=== PATIENT | male | born 1960 | race Caucasian/White ===

== ENCOUNTER 2018-09-03 06:09 | Inpatient (IN) ==
--- NOTE | 2018-07-27 11:33 | Anesthesiology Consultation ---
Date of Service July 27, 2018 Assessment & Plan (1) Encounter for pre-operative examination: Chart Review Chart Review: Acceptable Risk for Surgery and Patient seen in Pre Admission Testing Teaching & Discussion Instructed NPO after midnight before surgery, except medications with 15 cc of water. Medication instructions provided according to the PAT guidelines. History Surgery Operation Date: 09/03/18 13:00 Proposed Procedures p Right Total Shoulder Arthroplasty versus Reverse Total Shoulder Arthroplasty - Teddy Squires DO Height/Weight Height: 5 ft 8 in Weight: 90 kg Allergies Allergy/AdvReac Type Severity Reaction Status Date / Time No Known Allergies Allergy Verified 07/22/18 12:02 Medications Home Medications Medication Instructions Recorded Confirmed Last Taken diphenhydramine HCl [Benadryl 25 mg PO DAILY PRN 07/22/18 07/22/18 Unknown Allergy] Past Medical History Medical History Cancer SKIN BCC Diverticulitis HX Environmental allergies Osteoarthritis Past Surgical History Surgical History History of appendectomy History of colonoscopy History of tonsillectomy Past Anesthesia History No Hx of Anesthesia Complications and No Family Hx of Anesthesia Complications History of PONV No Motion Sickness Screening History of Motion Sickness: No Social History Smoking Status: Former smoker tobacco type: smokeless tobacco Do You Dip or Chew Tobacco: Yes (3-4 CANS WEEKLY) Smoking End Date: quit 29yrs ago Hx Alcohol Use: No Alcohol Intake Frequency Comment: Recovered alcoholic x 29 years Hx Substance Use: No substance use type: does not use Exercise / Class Metabolic Activity II 4-5 Yardwork/Stairs/Walk up hill (Denies CP or SOB with stairs) Review of Systems Pt denies any recent chest pain, shortness of breath, palpitations, cough, fever or URI. Physical Exam Vital Signs BP: 115/78 P: 74bpm SPO2: 96% RA T: 98.3 F R: 16 ENMT Mouth: + dental bridge; no chipped teeth and no loose teeth Thyromental Distance: < 3.5 Finger Breadths (3) Mallampati Class: II Neck normal visual inspection and + facial hair (full jimenes and mustache, medium length. Pt amenable to shaving prior); neck extension not limited Respiratory normal respiratory effort Auscultation: lungs clear to auscultation bilaterally Cardiovascular Rate/Rhythm: regular rate and regular rhythm Heart Sounds: no murmur Vessels: no carotid bruit Testing Electrocardiogram Date: 07/27/18 Findings: + NSR @ (68) Chest X-Ray Date: 07/27/18 Findings: + NAD Laboratory Results 07/27/18 11:49 07/27/18 11:49 Blood Type B Positive 07/27/18 11:49 Antibody Screen NEGATIVE 07/27/18 11:49 PT 10.6 Seconds (9.0-12.0) 07/27/18 11:49 INR 1.0 (0.9-1.1) 07/27/18 11:49 APTT 24.8 Seconds (21.0-31.0) 07/27/18 11:49
--- NOTE | 2018-07-27 11:41 | PAT Medication Instructions ---
Medication Instructions Date of Service July 27, 2018 Home Medications diphenhydramine HCl [Benadryl Allergy] 25 mg PO DAILY PRN DO NOT take the morning of surgery diphenhydramine HCl [Benadryl Allergy] 25 mg PO DAILY PRN Take evening before surgery diphenhydramine HCl [Benadryl Allergy] 25 mg PO DAILY PRN (if needed) Other Notes If you have any questions please call us at [phone] or [phone] or [phone] or [phone]
--- NOTE | 2018-07-27 12:46 | XRay Report ---
XR chest Pre-admission PA/Lat CLINICAL HISTORY: Preoperative evaluation. COMPARISON STUDY: No previous studies for comparison. FINDINGS: Incidental note is made of severe osteoarthritis of the right shoulder. Lung volumes are no rmal. There is no pneumothorax or pleural effusion. No consolidation or evidence for pulmonary edema. Cardiac size is normal. Mediastinal contours are normal. IMPRESSION: No acute cardiopulmonary findings. Electronically signed by: Mynor Kemp M.D. 07/27/2018 12:44 PM
[2018-07-27 14:31] LABS: Basophils # (auto) 0.03 K/uL (0-0.2); Basophils % (auto) 0.5 %; Eosinophils # (auto) 0.21 K/uL (0-0.5); Eosinophils % (auto) 3.5 %; Hematocrit (blood only) 45.8 % (42-52); Immature Granulocytes # (auto) 0.01 K/uL (0.00-0.02); Immature Granulocytes % (auto) 0.2 %; Lymphocytes # (auto) 2.05 K/uL (1.2-3.4); Lymphocytes % (auto) 34.2 %; Mean Corpuscular Hgb Conc 34.9 g/dL (32-36); Mean Corpuscular Volume 86.6 fL (80-100); Mean Platelet Volume 10.9 fL (7.4-10.4); Monocytes # (auto) 0.46 K/uL (0.11-0.59); Monocytes % (auto) 7.7 %; Neutrophils # (auto) 3.24 K/uL (1.4-6.5); Neutrophils % (auto) 53.9 %; Platelet Count 253 K/uL (130-400); RDW Coefficient of Variation 13.6 % (11.5-14.5); Red Blood Count 5.29 M/uL (4.7-6.1)
[2018-07-27 14:42] LABS: Partial Thromboplastin Ratio 0.9; Partial Thromboplastin Time 24.8 Seconds (21.0-31.0); Prothrombin Time 10.6 Seconds (9.0-12.0)
[2018-07-27 15:01] LABS: BUN Creatinine Ratio 17.7 (10-20); Calcium 9.4 mg/dl (8.5-10.1); Creatinine Clr Calc Pharmacy 89.4 ml/min; Est GFR (African American) 101.1; Est GFR (Non-African American) 87.3; Potassium 4.2 mmol/L (3.5-5.1)
--- NOTE | 2018-09-02 21:18 | History & Physical Report ---
Date of Service September 02, 2018 Assessment & Plan (1) Primary osteoarthritis of right shoulder: We will likely proceed with a right reverse shoulder arthroplasty. He understands that the intraoperative decision whether I decided to do a total shoulder or a reverse shoulder. Postoperatively he will be placed in a sling and kept overnight in the hospital for postop medical management. He plans to use energy physical therapy upon discharge. Present on Admission?: Yes History of Present Illness Chief Complaint: Primary osteoarthritis of the right shoulder Primary Care Provider: Bernard Rojo MD Is a pleasant 57-year-old male who is been dealing with a long history of right shoulder pain. MRI and clinical examination have been diagnostic for advanced osteoarthritis of the right shoulder. There is significant glenoid bone wear. After failing extensive conservative treatment, he is like to proceed with a reverse right shoulder arthroplasty. Allergies Allergy/AdvReac Type Severity Reaction Status Date / Time No Known Allergies Allergy Verified 07/22/18 12:02 Home Medications Home Medications Medication Instructions Recorded Confirmed Type diphenhydramine HCl [Benadryl 25 mg PO DAILY PRN 07/22/18 07/22/18 History Allergy] Past Med/Surg History Medical History Cancer SKIN BCC Diverticulitis HX Environmental allergies Osteoarthritis Surgical History History of appendectomy History of colonoscopy History of tonsillectomy Social History Preferred Language: Mauritian Communication Ability: Effective Beliefs That Will Affect Care: None Current Living Situation: Spouse Feels Safe at Home: Yes Smoking Status: Former smoker Tobacco Type: smokeless tobacco Second Hand Exposure: Yes ("SOMETIMES") Hx Alcohol Use: No Hx Substance Use: No Review of Systems All systems reviewed & are unremarkable except as noted in HPI & below Physical Exam Constitutional: WD/WN, vitals as above Eyes: PERRL, conjunctivae normal, anicteric sclerae ENMT: external ear and nose normal, oropharynx normal Neck: trachea midline, no thyromegaly Respiratory: normal respiratory effort Cardiovascular: RRR, no murmur, no edema Gastrointestinal (Abdomen): normal bowel sounds, soft, nontender, no hepatosplenomegaly Musculoskeletal: Physical examination of the right shoulder reveals decreased range of motion and crepitis throughout. There is good strength with full can testing and external rotation. There is tenderness palpation along the anterior glenohumeral joint line. The right upper extremity is neurovascularly intact. Psychiatric: A+Ox3, euthymic affect Results & Data Diagnostic Findings Radiographs of the right shoulder show osteoarthritis of the glenohumeral joint. There is joint space narrowing, osteophyte formation, and [id number] articulation.
[~2018-09-03 06:09] MED LIST: ACETAMINOPHEN 500 MG TAB PO SCH; CEFAZOLIN 2000MG 2,000 MG/15 ML SYR IV SCH; FAMOTIDINE 20 MG TAB PO SCH; GABAPENTIN 300 MG PO SCH; LR 15ML/HR IV SCH; LR 60ML/HR IV SCH; ROPIVACAINE 0.5% HCL/PF 150 MG, BUPIVACAINE 0.5% MPF 30 ML, EPINEPHrine 30MG/30ML (OR U... INFIL SCH; TRANEXAMIC ACID 1,000 MG **IV Pre-op IV SCH
[2018-09-03] MEDS ORDERED: ROPIVACAINE 0.5% 5 MG/ML 30 ML VIAL ONE (06:28)
[2018-09-03] MEDS ORDERED: BUPIVACAINE 0.5 % 5 MG/1 ML PF 10ML VIAL ONE (06:29)
[2018-09-03] MEDS ORDERED: TRANEXAMIC ACID 1,000 MG **IV Intra-op IV SCH (06:30)
[2018-09-03] MEDS ORDERED: MIDAZOLAM HCL 1 MG/ML 2ML VIAL ONE (06:43)
[2018-09-03] MEDS ORDERED: fentaNYL citrate 100 MCG/2 ML VIAL ONE (06:43)
[2018-09-03] MEDS ORDERED: LIDOCAINE HCL 2% 2 ML VIAL/AMP(20MG/ML) INFIL ONE (06:47)
[2018-09-03] MEDS ORDERED: PROPOFOL IV EMULSION 10 MG/ML 20 ML VIAL IV ONE (06:47)
--- NOTE | 2018-09-03 06:56 | History & Physical Bridge Note ---
Date of Service September 03, 2018 History & Physical Bridge Note I have examined the patient, reviewed the History & Physical and in the interval since the performance of the History & Physical I have noted the following changes of clinical significance: no changes noted
[2018-09-03] MEDS ORDERED: ORTHO JOINT ANESTHETIC ONE (07:35)
[2018-09-03] MEDS ORDERED: POVIDONE-IODINE OP SOLN 30 ML BTL ONE (07:35)
[2018-09-03] MEDS ORDERED: ONDANSETRON INJ 2 MG/ML 2 ML VIAL IV PRN ×2 (08:17→12:39)
[2018-09-03] MEDS ORDERED: ATROPINE SULFATE 0.1 MG/ML 10ML SYR IV PRN (08:17)
[2018-09-03] MEDS ORDERED: ePHEDrine sulfate 50 MG/ML AMP IV PRN (08:17)
[2018-09-03] MEDS ORDERED: fentaNYL citrate 100 MCG/2 ML VIAL IV PRN (08:17)
[2018-09-03] MEDS ORDERED: ePHEDrine sulfate 50 MG/ML SYR ONE (09:33)
[2018-09-03] MEDS ORDERED: PROMETHAZINE HCL INJ 25 MG/ML 1 ML VIAL ONE (10:41)
--- NOTE | 2018-09-03 10:57 | Operative Report ---
Post Operative Report Pre & Post Diagnosis Operation Date: 09/03/18 08:30 Pre-Op Diagnosis: Right Shoulder Degenerative Joint Disease Post-Op Diagnosis: Right Shoulder Degenerative Joint Disease Procedure Operation Date: 09/03/18 08:30 Actual Procedures p Right Reverse Total Shoulder Arthroplasty(Right) - Teddy Squires DO Surgeon Teddy Squires DO Improvement Auditor Teddy Beavers PAC Estimated Blood Loss 150 Findings Consistent with Post-Op Diagnosis Specimens Right humeral head Complications none Disposition Disposition: Recovery Room Indications Kemal is a pleasant 57-year-old male who is been dealing with chronic increasing right shoulder pain. Is been years since she has been able to get his shoulder above chest level. He has only 0 degrees of external rotation. His x-ray showed advanced posterior glenoid wear. After fall discussions in the office he elected to proceed with a reverse right shoulder arthroplasty. I thought it would be difficult to reconstruct his glenoid and still be able to have enough mobility of his subscapularis to make a total shoulder arthroplasty successful. Description of Procedure Implants used: I used a [employer] Comprehensive reverse total shoulder arthroplasty system with a size 12 press fit mini humeral stem, a standard humeral tray and a standard humeral bearing, a standard 28 mm baseplate with a 6.5 mm central screw and superior and inferior locking screws, and a size 41 mm eccentric glenosphere. The patient arrived at [facility] for the above procedure. There were seen in the preoperative holding area and the operative extremity was identified and signed. They were given a preoperative antibiotic and an interscalene nerve block. They were taken back to the operating room, laid on table in supine position, and put under general anesthesia. They were then put into the beachchair position. The shoulder was then prepped and draped in sterile fashion. A timeout was done and the patient in the operative extremity was properly identified. A deltopectoral approach was used. Dissection was taken down through the fascia and the deltoid was retracted laterally and the conjoined tendon was retracted medially. The anterior shoulder was exposed. The long head of the biceps tendon was tenodesed to the upper border of the pectoralis major. The subscapularis was then released off the lesser tuberosity with a centimeter of cuff tissue remaining. The inferior capsule was released and the humeral head was dislocated. A canal finding reamer was sent down the center of the humeral canal. Sequential reaming up to a size 12 reamer was done. Off that reamer, a proximal humeral resection guide was placed. The proximal humerus was resected at 135 of inclination and 25 of retroversion. Osteophytes were then removed and the glenoid was exposed. Time was spent doing a complete capsular and labral release. A [employer] signature guide was then attached onto the anterior rim of the glenoid. A 3.2 mm Steinmann pin was then placed in the reverse total shoulder arthroplasty hole. The glenoid baseplate was then reamed. The final size 28 mm baseplate was then impacted in the place. A 6.5 mm central screw was then placed followed by superior and inferior locking screws. A 41 mm eccentric glenoid sphere was then impacted into place. Surrounding soft tissues were then injected with 100 cc an orthopedic pain control cocktail. The proximal humerus was then exposed. Sequential broaching of the humerus up to a size 12 broach was done. Off that broach a standard humeral tray was trialed. The shoulder was then reduced, brought through a full range of motion and felt to be stable. The shoulder was then dislocated and the broach was removed. The final size 12 mini press-fit humeral stem was then impacted into place. A standard humeral bearing was then snapped onto a standard humeral tray and the ring-lock mechanism was engaged. The humeral tray was then impacted onto the humeral stem. The shoulder was once again reduced, brought through a full range of motion and felt to be stable. The subscapularis was then tenodesed back to the lesser tuberosity with transosseous FiberWire sutures and side to side sutures with the arm in 45 of external rotation. A dilute betadyne lavage was then done for 3 minutes. The joint was then irrigated with normal saline solution. Hemostasis was obtained. The skin was then closed with 2-0 Vicryl, 3-0V lock suture, and daron. A soft dressing and a regular arm sling was placed. The patient was then extubated and transferred to a hospital bed. They were taken to the postanesthesia care unit in stable condition. They tolerated the procedure well. I attest to the content of the Intraoperative Record and any orders documented therein. Any exceptions are noted below.
--- NOTE | 2018-09-03 11:51 | XRay Report ---
XR shoulder RT min 2V routine CLINICAL HISTORY: 57 years-old Male presenting with Post shoulder surgery. TECHNIQUE: Frontal and transscapular Y views of the right shoulder were obtained. COMPARISON: CT from 07/27/2018. FINDINGS: There has been interval reverse total right shoulder arthroplasty. Expected soft tissue emphysema and overlying skin daron. No malalignment. No periprosthetic lucency. No periprosthetic fracture. The acromioclavicular joint remains congruent. Mildly low lung volume on the right. IMPRESSION: Expected postsurgical appearance status post reverse total right shoulder arthroplasty. Electronically signed by: Remi Rahman M.D. 09/03/2018 11:50 AM
--- NOTE | 2018-09-03 11:53 | Anesthesiology Progress Note ---
Date of Service September 03, 2018 Anesthesia Post Procedure Vital Signs Vital Signs: Temp Pulse Pulse Resp BP BP Pulse Ox 09/03/18 11:30 79 17 97/66 L 100 09/03/18 11:21 97.0 F L 73 16 100/57 L 100 09/03/18 08:40 67 14 89/58 L 99 09/03/18 08:30 70 16 91/60 L 99 09/03/18 08:25 84/58 L 09/03/18 08:22 69 16 77/51 L 99 09/03/18 06:36 97.9 F 74 20 126/84 96 Pain Intensity Right Shoulder: Pain Intensity: 0 Notes Mental Status: alert / awake / arousable and participated in evaluation Patient Amnestic to Procedure: Yes Nausea / Vomiting: adequately controlled Pain: adequately controlled Airway Patency, RR, SpO2: stable & adequate BP & HR: stable & adequate Hydration State: stable & adequate Anesthetic Complications: no major complications apparent and Pt Satisfied with anesthetic care
[2018-09-03] MEDS ORDERED: BISACODYL 10 MG SUPP PR PRN (12:39)
[2018-09-03] MEDS ORDERED: METOCLOPRAMIDE HCL INJ 5 MG/ML 2 ML VIAL IV PRN (12:39)
[2018-09-03] MEDS ORDERED: HYDROmorphone INJ 0.5 MG/0.5 ML SYR IV PRN (12:39)
[2018-09-03] MEDS ORDERED: OXYCODONE HCL IR 5 MG TAB (IMMEDIATE RELEASE) PO PRN (12:39)
[2018-09-03] MEDS ORDERED: MAGNESIUM HYDROXIDE SUSP 30 ML UDC PO PRN (12:39)
[2018-09-03] MEDS ORDERED: NALOXONE HCL 0.4 MG/1 ML VIAL/CARP IV PRN (12:39)
[2018-09-03] MEDS: SODIUM CHLORIDE 0.9% 1000ML 1,000 ML IV SCH ×2 (13:55→22:52)
[2018-09-03] MEDS: ACETAMINOPHEN 1,000 MG/100 ML VIAL IV SCH ×2 (13:55→22:30)
[2018-09-03] MEDS: KETOROLAC 30 MG/ML VIAL IV SCH ×2 (14:00→20:30)
[2018-09-03] MEDS: CEFAZOLIN 2000MG 2,000 MG/15 ML SYR IV SCH (17:06)
[2018-09-03] MEDS: DOCUSATE SODIUM 100 MG CAP PO SCH (20:30)
[2018-09-03] MEDS ORDERED: SENNA 8.6 MG TAB PO SCH (21:00)
[2018-09-04] MEDS: CEFAZOLIN 2000MG 2,000 MG/15 ML SYR IV SCH (00:39)
[2018-09-04] MEDS: KETOROLAC 30 MG/ML VIAL IV SCH ×2 (02:07→08:54)
[2018-09-04 06:18] LABS: Basophils # (auto) 0.01 K/uL (0-0.2); Basophils % (auto) 0.1 %; Hematocrit (blood only) 38.8 % (42-52); Hemoglobin 13.3 g/dL (14.0-18.0); Immature Granulocytes # (auto) 0.03 K/uL (0.00-0.02); Immature Granulocytes % (auto) 0.2 %; Lymphocytes % (auto) 9.9 %; Mean Corpuscular Hgb Conc 34.3 g/dL (32-36); Mean Platelet Volume 10.2 fL (7.4-10.4); Monocytes % (auto) 6.4 %; Neutrophils # (auto) 11.79 K/uL (1.4-6.5); Neutrophils % (auto) 83.4 %; Platelet Count 198 K/uL (130-400); RDW Coefficient of Variation 13.4 % (11.5-14.5); RDW Standard Deviation 42.4 fL (36.4-46.3); Red Blood Count 4.51 M/uL (4.7-6.1); White Blood Count 14.13 K/uL (4.8-10.8)
[2018-09-04 06:48] LABS: BUN Creatinine Ratio 21.5 (10-20); Calcium 8.3 mg/dl (8.5-10.1); Creatinine Clr Calc Pharmacy 68.9 ml/min; Est GFR (African American) 71.9; Potassium 4.5 mmol/L (3.5-5.1)
[2018-09-04] MEDS: ACETAMINOPHEN 1,000 MG/100 ML VIAL IV SCH (07:14)
--- NOTE | 2018-09-04 08:48 | Orthopedic Progress Note ---
Date of Service September 04, 2018 Assessment & Plan (1) Primary osteoarthritis of right shoulder: Overall he is doing fairly well. His nerve block has not worn off yet. He will be seen by physical therapy this morning to do gentle range of motion exercises. We will continue oxycodone for pain control. He will be discharged home later this morning with energy physical therapy. He can follow-up with orthopedics in 2 weeks. Present on Admission?: Yes Subjective Don was seen and examined at bedside this morning. Overall is doing very well. Is not having any pain in the right shoulder. His nerve block has not worn off yet. He was able to get some sleep last night. He has no complaints. Physical Exam Musculoskeletal: On physical examination of the right shoulder, the dressing is clean and dry. He is wearing a sling as instructed. His hand is still numb. He does not have any dorsiflexion of his wrist or extension of his fingers at this point. It is likely still because of the block. Results & Data Vital Signs (Past 12 Hours) Vital Signs Temp Pulse Resp BP BP Pulse Ox 09/04/18 08:32 36.8 C 69 18 123/81 94 09/04/18 03:13 36.7 C 73 16 104/66 93 09/03/18 23:12 36.7 C 96 H 16 118/69 94 Laboratory Results H & H 07/27/18 09/04/18 Range/Units 11:49 05:48 Hgb 16.0 13.3 L (14.0-18.0) g/dL Hct 45.8 38.8 L (42-52) % Coagulation 07/27/18 Range/Units 11:49 INR 1.0 (0.9-1.1) Diagnostic Findings Postoperative x-rays of the right shoulder show the prosthesis to be in anatomic alignment without any evidence of fracture, dislocation, or loosening.
--- NOTE | 2018-09-04 08:49 | Discharge Summary ---
Date of Service September 04, 2018 Admission HPI Per Admitting Provider Is a pleasant 57-year-old male who is been dealing with a long history of right shoulder pain. MRI and clinical examination have been diagnostic for advanced osteoarthritis of the right shoulder. There is significant glenoid bone wear. After failing extensive conservative treatment, he is like to proceed with a reverse right shoulder arthroplasty. Specialty Data Orthopedic H & H 07/27/18 09/04/18 Range/Units 11:49 05:48 Hgb 16.0 13.3 L (14.0-18.0) g/dL Hct 45.8 38.8 L (42-52) % Coagulation 07/27/18 Range/Units 11:49 INR 1.0 (0.9-1.1) Discharge Data Consultations 09/03/18 12:39 Consult Case Management - Discharge Planning Routine Procedures Performed Operation Date: 09/03/18 08:30 Actual Procedures p Right Reverse Total Shoulder Arthroplasty(Right) - Teddy Squires DO [facility] Course (1) Primary osteoarthritis of right shoulder: On September 03, 2018.arrived at [facility] and underwent a reverse right shoulder arthroplasty without complication. He had a general anesthetic and a right interscalene nerve block. Postoperatively he was placed in an arm sling and discharged to general orthopedic floors. His hospital course was uneventful. On postop day 1 his H&H was stable and his pain was well controlled. He was seen by physical therapy and able to do gentle range of motion exercises. He was then discharged home with energy physical therapy. He will follow-up with orthopedics in 2 weeks. Discharge Instructions Home Medications Medication Instructions Recorded Confirmed diphenhydramine HCl [Benadryl 25 mg PO DAILY PRN 07/22/18 09/03/18 Allergy] Previous Rx's Medication Instructions Recorded oxycodone 5 - 10 mg PO Q4H PRN #40 tab 09/04/18
[2018-09-04] MEDS: DOCUSATE SODIUM 100 MG CAP PO SCH (08:54)
[2018-09-04] MEDS ORDERED: MULTIVITAMIN TAB PO SCH (09:00)
--- OUTSIDE RECORDS SUMMARY | 2018-09-06 21:48 | External Medical Summary | Continuity of Care Document ---
:1960 Author Name Sherry Alexander, Provider Address Unavailable Unavailable , Care Team Providers Name Role Phone NonMGUILLERMOG Catherine, Provider Unavailable [email or web address] Alanis Unavailable Unavailable Unavailable Unavailable Unavailable Problems Palpitations (785.1) (R00.2) Encounter for screening for lipoid disorders (V77.91) (Z13.2 20) Screening for deficiency anemia (V78.1) (Z13.0) Screening for thyroid disorder (V77.0) (Z13.29) Screening PSA (prostate specific antigen) (V76.44) (Z12.5) Encounter for screening colonoscopy (V76.51) (Z12.11) Screening for diabetes mellitus (V77.1) (Z13.1) History of Diverticulitis of colon with perforation (562.11) (K57.20) Status: Resolved Allergies and Adverse Reactions No Known Drug Allergies (Allergy) Medications No Reported Medications Refills: 0 Procedures History of Tonsillectomy Status: Complet ed History of Biopsy Skin Status: Completed Immunizations Immunizations not documented Family History Father Family history of Father At Age ___ Status: Active Family history of malignant neoplasm (V16.9) (Z80.9) Status: Active Family history of hypertension (V17.49) (Z82.49) Status: Act david Family history of cardiomegaly (V17.49) (Z82.49) Status: Act david Mother Family history of Mother At Age ___ Status: Active Family history of hypertension (V17.49) (Z82.49) Status: Act david Family history of pulmonary fibrosis (V17.6) (Z83.6) Status: Active Family history of emphysema (V17.6) (Z82.5) Status: Active Brother Family history of Brother At Age ___ Status: Active Family history of coronary artery disease (V17.3) (Z82.49) S tatus: Active Social History - Smoking Status Former smoker Plan of Treatment Planned Observations Planned Goals not documented Results BLOOD BANK HOLD TUBE (Pending) Laboratory: [facility] Laboratory [address] [facility] [address] tel:[phone] 03-Sep-2018 6:48 BLOOD BANK HOLD TUBE Run: 09/03/18 0715 [facility] [place] Pathology Report ------- ------- ----Name: CHAIM CALDERON Age/Sex: 57/M Location: ASUAcct: [id number] Unit: [id number] [place] [facility] [place]Bed:Re09/03/18 Disch: Att Dr: Teddy Squires, ------- ------- Spec: [id number] Collected: 09/03/18Received: 09/03/[address]: Teddy Squires, DOCopy To: Yeny Rojo MDOrd Prods: (NO ORDERED PRODUCTS)Or d Tests: (NO REPORTABLE TESTS) ------- ------- ----Test Result Flag Reference Site ------- ------- --<No reportable results> ------- ------- ------Tests: Date Time Or gene Change Action User09/02/18 14 28 Blood Bank Hold 1 NEW [id number] ------- ----- END OF REPORT XR shoulder RT min 2V RTN (Pending) Laboratory: [facility] Diagnostic Imaging [address] [place] [address] 03-Sep-2018 11:49 XR shoulder RT min 2V RTN [facility], [place] [phone] XRay Report Patient: CHAIM CALDERON Da te: 09/03/18 MR#: [id number] Address1: [address] Acct ID:[id number] Address2 : Date: 1960 [facility] Zip: [place] [address] Age: 57 Location: [facility] Sex: M Room/Bed: Att Phy: Teddy Squires DO Diagnosis: Ri ght Shoulder Degenerativ e Joint Disease Iliana Phy: Yeny Rojo MD Service Date: 0 09/03/18 [facility] Phy: Interpreting P hy: Remi Rahman MD Ad [facility] Phy: Ordering Phy: Teddy Beavers PA -C cc: XR shoul gene RT min 2V routine CLINICAL HISTORY: 57 years-old Male presenting with Post shou lder surgery. TECHNIQUE: Frontal and transscapular Y views of the right shoul gene were obtained. COMPARISON: CT from 07/27/2018. FINDINGS: There has be en interval reverse total right shoulder arthroplasty. Expected soft tissue emphy sema and overlying skin daron. No malalignm ent. No periprosthetic lucency. No periprostheti c fracture. The acromioclavicular joint re elizabeth congruent. Mildly low lung volume on the right. IMPRESSION: Expected postsurgical appearance status post reverse total rig ht shoulder arthroplasty. Electronically signed by: Remi Rahman M.D. 09/03/2018 11:50 AM Dictated: 0 09/03/18 1149 Transcribed: 09/03/18 1149
== END 2018-09-04 10:48 | disposition home health service (06) | DRG 483 ==
LOC: ASU 06:09 → 3E 11:26